=== PATIENT | female | born 1985 | race Caucasian/White ===

== ENCOUNTER 2019-08-22 00:16 | Emergency (ER) | payer OTHER ==
[~2019-08-22] VITALS: Ht 160 cm; Wt 106.1 kg
[~2019-08-22 00:16] MED LIST: HUM SUBQ
[2019-08-22 00:37] VITALS: BP 127/82
--- NOTE | 2019-08-22 00:40 | NUR ---
PT GAVE URINE SAMPLE
--- NOTE | 2019-08-22 00:40 | NUR ---
PT TAKEN BACK TO LOBBY
--- NOTE | 2019-08-22 01:15 | NUR ---
PATIENT CALLED TO BED , NO RESPONSE PATIENT LEFT WITHOUT BEING SEEN BY DR. SOLIS. NO FURTHER CARE PROVIDED FOR PATIENT.
--- NOTE | 2019-08-22 01:20 | NUR ---
CALLED FOR THE SECOND TIME , NO RESPONSE
--- NOTE | 2019-08-22 01:25 | NUR ---
CALLED FOR THE THIRD TIME , NO RESPONSE
== END 2019-08-22 01:15 | disposition left against medical advice (07) ==
LOC: MED 00:16
DX: R10.9 Unspecified abdominal pain (principal); R11.0 Nausea; R19.7 Diarrhea, unspecified; Z53.21 Procedure and treatment not carried out due to patient leaving prior to being seen by health care provider